=== PATIENT | female | born 1990 | race Caucasian/White ===

== ENCOUNTER 2017-07-03 23:10 | Inpatient (IN) | payer BC ==
[~2017-07-03] VITALS: Ht 154.9 cm; Wt 75.9 kg
[~2017-07-03 23:10] MED LIST: OMEP40CA PO
[2017-07-03] MEDS ORDERED: LACTATED RINGER'S 1000ML 1,000 ML IV PRN (23:44)
[2017-07-03] MEDS ORDERED: PENICILLIN G POTASSIUM IV 6 MU in DEXTROSE 5% 250ML 250 ML IV STA (23:48)
[2017-07-04 00:06] LABS: HEMATOCRIT 33.2 % (37-47); MEAN CELL VOLUME 87.6 fL (80-100); MEAN CORPUSCULAR HEMOGLOBIN 30.6 pg (25-34); MEAN CORPUSCULAR HGB CONC 34.9 g/dl (32-36); PLATELET COUNT 297 K/uL (130-400); RED BLOOD COUNT 3.79 M/uL (4.2-5.4)
[2017-07-04] MEDS: LACTATED RINGER'S 1000ML 1,000 ML IV SCH ×2 (00:12→14:13)
[2017-07-04 00:22] VITALS: Ht 154.9 cm; Wt 75.9 kg
[2017-07-04] MEDS ORDERED: PRENTAB26 PO (00:23)
[2017-07-04] MEDS: PENICILLIN G POTASSIUM IV 3 MU in DEXTROSE 5% 100ML 100 ML IV PRN ×4 (04:00→16:06)
[2017-07-04] MEDS ORDERED: LACTATED RINGER'S 1000ML 500 ML IV PRN ×2 (07:29→08:14)
[2017-07-04] MEDS ORDERED: OXYTOCIN 30 UNITS/500ML NSS IV PRN (07:30)
[2017-07-04] MEDS ORDERED: FENTANYL 2MCG/ML ROPIV 1.25MG/ML 100ML BAG EPI ONE (07:31)
[2017-07-04] MEDS ORDERED: EpHEDrine SULFATE INJ 50 MG/ML AMP ONE (07:31)
[2017-07-04] MEDS ORDERED: FENTANYL CITRATE INJ 50 MCG/1 ML 2 ML VIAL ONE (07:31)
[2017-07-04] MEDS ORDERED: BUPIVACAINE 0.25% 30 ML VIAL ONE (07:31)
[2017-07-04] MEDS ORDERED: NALOXONE HCL INJ 1 MG in SODIUM CHLORIDE 0.9% 1000ML 1,000 ML IV PRN (08:14)
[2017-07-04] MEDS ORDERED: NALBUPHINE HCL INJ 10 MG/ML AMP IV PRN (08:15)
[2017-07-04] MEDS ORDERED: DiphenhydrAMINE HCL 50 MG/ML VIAL IV PRN (08:15)
[2017-07-04] MEDS ORDERED: ONDANSETRON INJ 2 MG/ML 2 ML VIAL IV PRN (08:15)
[2017-07-04] MEDS ORDERED: NALOXONE HCL INJ 0.4 MG/1 ML VIAL/CARP IV PRN (08:15)
[2017-07-04] MEDS ORDERED: EpHEDrine SULFATE INJ 50 MG/ML AMP IV PRN (08:15)
[2017-07-04] MEDS ORDERED: FENTANYL 2MCG/ML ROPIV 1.25MG/ML 100ML BAG EPI PRN (08:15)
[2017-07-04] MEDS ORDERED: LACTATED RINGER'S 1000ML 1,000 ML IV SCH (17:48)
[2017-07-04] MEDS ORDERED: CITRIC ACID/SODIUM CITRATE 15 ML UDC ONE (17:50)
[2017-07-04] MEDS ORDERED: CITRIC ACID/SODIUM CITRATE 15 ML UDC PO ONE (18:00)
[2017-07-04] MEDS ORDERED: CEFAZOLIN IV 2,000 MG in DEXTROSE 5% 50ML 50 ML IV SCH (18:15)
[2017-07-04] MEDS ORDERED: ONDANSETRON INJ 2 MG/ML 2 ML VIAL ONE (18:42)
[2017-07-04] MEDS ORDERED: OXYTOCIN INJ 10 UNITS/ML VIAL ONE ×2 (18:42→19:41)
[2017-07-04] MEDS ORDERED: MoRPHine SULFATE PF 1 MG/ML 10 ML AMP/VIAL ONE (18:43)
[2017-07-04] MEDS ORDERED: SUCCINYLCHOLINE CHLORIDE 20 MG/ML 10 ML VIAL IV ONE (18:58)
[2017-07-04] MEDS ORDERED: PROPOFOL IV EMULSION 10 MG/ML 20 ML VIAL IV ONE (18:58)
[2017-07-04] MEDS ORDERED: KETOROLAC TROMETHAMINE 30 MG/ML VIAL ONE (19:00)
--- NOTE | 2017-07-04 19:25 | Anesthesia Procedure Note ---
Anesthesia Epidural Removal Nt Date & Time Jul 04, 2017 at 19:24 Vital Signs Pain Intensity: 0.0 Notes Mental Status: alert / awake / arousable, participated in evaluation Nausea / Vomiting: adequately controlled Pain: adequately controlled Airway Patency, RR, SpO2: stable & adequate BP & HR: stable & adequate Hydration State: stable & adequate Neuraxial Anesthesia: was administered Anesthetic Complications: no major complications apparent, pt satisfied with anesthetic care Epidural: removed without complications, with tip intact
[2017-07-04] MEDS ORDERED: MoRPHine SULFATE 2 MG/ML CARP IV PRN (19:30)
[2017-07-04] MEDS ORDERED: MoRPHine SULFATE PF 1 MG/ML 10 ML AMP/VIAL EPI PRN (19:30)
[2017-07-04] MEDS ORDERED: KETOROLAC TROMETHAMINE 30 MG/ML VIAL IV. PRN (19:30)
[2017-07-04] MEDS ORDERED: CONTINUE MEDICATION ONE (19:30)
[2017-07-04] MEDS ORDERED: NO NARCOTICS OR SEDATIVES SCH (19:30)
[2017-07-04] MEDS ORDERED: OXYTOCIN INJ 20 UNITS in D5W AND LACTATED RINGERS 1,000 ML IV SCH (19:36)
[2017-07-04] MEDS ORDERED: OXYTOCIN INJ 20 UNITS in LACTATED RINGER'S 1000ML 1,000 ML IV SCH (19:36)
[2017-07-04] MEDS ORDERED: SUPERCREAM 0.870 % 15GM JAR EXT PRN (19:45)
[2017-07-04] MEDS ORDERED: MEASLES, MUMPS & RUBELLA VIRUS VIAL SQ. ONE (19:45)
[2017-07-04] MEDS ORDERED: SENNA 8.6 MG TAB PO PRN (19:45)
[2017-07-04] MEDS ORDERED: MAGNESIUM HYDROXIDE SUSP 30 ML UDC PO PRN (19:45)
[2017-07-04] MEDS ORDERED: HYDROCORTISONE ACETATE 25 MG SUPP PR PRN (19:45)
[2017-07-04] MEDS ORDERED: BENZOCAINE 20% AER SPR 82.5 GM CAN EXT PRN (19:45)
[2017-07-04] MEDS ORDERED: LANOLIN OINT EXT PRN ×2 (19:45)
--- NOTE | 2017-07-04 19:45 | [facility] Post Operative Brief Note ---
Immediate Operative Summary Operative Date Jul 04, 2017. Pre-Operative Diagnosis Prlonged ROM, Non reassuring heart tones, Arrest of dilation, Occiptial posterior postion Post-Operative Diagnosis Same Procedure(s) Performed Primary Caesarean Section for the of a viable male child at 1831. Surgeon Vehicle Delivery Worker Surgeon(s) KEISHA Casas Estimated Blood Loss 800 ml Findings Viable male infant, Apgars 9/9 Fluids (cc crystalloids) 1500 ml LR Specimens 1.) Placenta Exam 2.) Cord Blood Drains Crockett 150 ml Anesthesia Epidural, Dr. EVANS Complication(s) None Disposition L&D
[2017-07-04] MEDS: DOCUSATE SODIUM 100 MG CAP PO SCH (20:00)
[2017-07-04] MEDS: SIMETHICONE 80 MG CHEW PO SCH (21:00)
[2017-07-04] MEDS ORDERED: HYDROmorphone INJ 1 MG/ML SYR IV ONE (21:45)
[2017-07-04] MEDS ORDERED: NURSING VERBAL MED ORDER ONE (21:45)
[2017-07-04 22:30] VITALS: BP 107/69; PULSE 67; TEMP 36.7; O2SAT 97
[2017-07-04 23:00] VITALS: O2SAT 95
--- NOTE | 2017-07-04 23:06 | OPERATIVE REPORT ---
DATE OF OPERATION: 07/04/2017 PREOPERATIVE DIAGNOSIS: The patient is a 26-year-old G1, P0, at 39 weeks and 4 days of gestation, presenting with premature rupture of membranes at term, prolonged rupture of membranes, arrest of dilatation at active stage of labor despite adequate uterine contractions, nonreassuring heart rate with recurrent prolonged decelerations, and persistent occiput posterior position. POSTOPERATIVE DIAGNOSIS: Same. PROCEDURE: Primary low-transverse with Pfannenstiel skin incision. SURGEON: Dr. Gilbert. MILLING SUPERVISOR: Yessenia Stockton RN. ESTIMATED BLOOD LOSS: 800 FLUIDS: 1500 mL of lactated Ringer. DRAINS: 150 mL of clear urine by Crockett catheter. ANESTHESIA: Epidural, Dr. Mojica. COMPLICATIONS: None. SPECIMENS: Placenta and cord blood. FINDINGS: Baby is a viable male delivered at 1831 in cephalic presentation with ROP, Apgars 9/9, weight is 3790 grams which is 8 pounds 5 ounces. Normal uterus, fallopian tubes and ovaries. DESCRIPTION OF PROCEDURE: The patient was taken to the operating room where epidural anesthesia was checked to be adequate. She was placed in dorsal supine position with a leftward tilt. The Vagina was washed with Betadine prior to preparation. She was prepared and draped in usual sterile fashion. A Pfannenstiel skin incision was made, carried through to the underlying layer of fascia with the Bovie. Fascia was incised in the midline and incision extended laterally with the help of Morgan scissors. Lower aspect of the fascial incision was then grasped with 2 Ayla clamps, elevated, underlying rectus muscles were dissected off sharply with Morgan scissors and upper aspect of the fascial incision was then grasped with 2 Ayla clamps, elevated, underlying rectus muscles were dissected off sharply with Morgan scissors. The rectus muscles were in the midline and peritoneum was identified, entered bluntly, and peritoneal incision was extended superiorly and inferiorly with good visualization of the bladder. Bladder blade was inserted. Vesicouterine peritoneum was identified, grasped with pickups, entered sharply with Metzenbaum scissors and the bladder flap was created digitally. Bladder blade was reinserted. Lower uterine segment was incised in transverse fashion. Incision was extended laterally with the help of fingers and then the baby's head was brought to the incision and delivered without difficulty. Shoulders were delivered with minimal traction, and baby was delivered. There was a body cord wrapped around abdomen which was reduced. The mouth and nose were suctioned. Cord was clamped x2 and cut, it was a 3-vessel cord. The baby was handed off to the awaiting assistant office manager. Cord blood was obtained and then placenta was delivered manually intact and complete. Uterus was exteriorized, cleared of all clots and debris. Uterine incision was repaired with 0 Vicryl in a running locked fashion. The uterus was soft, and boggy. IV Oxytocin was being given. Then 10 units of intramyometrial oxytocin was injected and then intramuscular Methergine was given by anesthesiologist and the uterus was massaged and found to be firm and contracted. Second umbricating layer was placed again with 0 Vicryl in a running locked fashion and excellent hemostasis was achieved. The uterus was returned to the abdomen and pelvis was irrigated with warm normal saline and suctioned. Incision was inspected again to be intact and hemostatic. Parietal peritoneum was reapproximated with 3-0 Vicryl in a running fashion. Rectus muscles were reapproximated with the same suture in a running fashion. Rectus fascia was reapproximated with 0 Vicryl in a running fashion. Subcuticular fat tissue was brought together with 3-0 Vicryl in a running fashion and the skin was closed with 4-0 Monocryl in a subcuticular fashion. The patient tolerated the procedure well. Sponge, lap, needle and instrument counts were correct x3. She was given 2 grams of cefazolin before surgery. She was taken to recovery room in stable condition. I attest to the content of the Intraoperative Record and any orders documented therein. Any exceptions are noted below. MTDD
[2017-07-04 23:15] VITALS: BP 116/72; PULSE 86; TEMP 36.9; O2SAT 95
[2017-07-05] VITALS (12 sets, daily range): BP systolic 102–109; BP diastolic 64–70; PULSE 73–99; TEMP 36.4–36.7; O2SAT 94–100
[2017-07-05] MEDS: METHYLERGONOVINE MALEATE 0.2 MG TAB PO SCH ×2 (03:31)
[2017-07-05] MEDS: LACTATED RINGER'S 1000ML 1,000 ML IV SCH (04:04)
[2017-07-05] MEDS ORDERED: ONDANSETRON INJ 2 MG/ML 2 ML VIAL IV PRN (06:00)
[2017-07-05] MEDS ORDERED: OXYCODONE/ACETAMINOPHEN 5-325 TAB PO PRN (06:00)
[2017-07-05] MEDS ORDERED: KETOROLAC TROMETHAMINE 30 MG/ML VIAL IV. PRN (06:00)
[2017-07-05] MEDS ORDERED: MEPERIDINE HCL 50 MG/ML CARP IV PRN ×2 (06:00)
[2017-07-05] MEDS ORDERED: PROMETHAZINE HCL INJ 25 MG in SODIUM CHLORIDE 0.9% 50ML 50 ML IV PRN (06:00)
[2017-07-05] MEDS ORDERED: DC INTRASPINAL MORPHINE ONE (06:00)
[2017-07-05] MEDS ORDERED: DiphenhydrAMINE HCL 50 MG/ML VIAL IV PRN (06:00)
[2017-07-05 06:34] LABS: HEMATOCRIT 26.3 % (37-47); MEAN CELL VOLUME 90.4 fL (80-100); MEAN CORPUSCULAR HEMOGLOBIN 30.2 pg (25-34); MEAN CORPUSCULAR HGB CONC 33.5 g/dl (32-36); MEAN PLATELET VOLUME 9.6 fL (7.4-10.4); PLATELET COUNT 225 K/uL (130-400); RED BLOOD COUNT 2.91 M/uL (4.2-5.4); WHITE BLOOD COUNT 19.19 K/uL (4.8-10.8)
[2017-07-05] MEDS: DOCUSATE SODIUM 100 MG CAP PO SCH ×2 (07:44→20:00)
[2017-07-05] MEDS: FERROUS SULFATE 325 MG TAB PO SCH (07:44)
[2017-07-05] MEDS: SIMETHICONE 80 MG CHEW PO SCH ×4 (07:45→20:44)
[2017-07-05] MEDS: PRENATAL VITAMIN TAB PO SCH (07:46)
[2017-07-05 07:51] LABS: BASO % 0.1 %; BASO ABS # 0.02 K/uL (0-0.2); COMPLETE YES; EOS % 0.4 %; IG% 0.4 %; LYMPH % 6.2 %; LYMPH ABS # 1.19 K/uL (1.2-3.4); MONO % 6.5 %; NEUT % 86.4 %
--- NOTE | 2017-07-05 09:00 | Surgery Progress Note ---
Surgery Progress Note Date of Service Jul 05, 2017. Subjective Post OP Day: 1 + feeling well, + ambulating, + flatus, + pain controlled, + diet (tolerating PO ), No complaints, No chest pain, No SOB, No bowel movement, No using SLAT BASKET MAKER HELPER, No nausea, No vomiting Objective Vital Signs: Date Time Temp Pulse Resp B/P (MAP) Pulse Ox O2 Delivery O2 Flow Rate FiO2 07/05/17 06:00 20 94 07/05/17 05:00 20 94 07/05/17 04:00 36.7 99 20 108/64 (79) 95 Room Air 07/05/17 04:00 20 95 07/05/17 03:00 20 94 07/05/17 02:00 20 97 07/05/17 01:00 18 94 07/05/17 00:01 18 94 07/04/17 23:15 36.9 86 18 116/72 (87) 95 Room Air 07/04/17 23:15 18 95 07/04/17 23:15 95 Room Air 07/04/17 23:00 18 95 07/04/17 22:30 36.7 67 18 107/69 (82) 97 Room Air General Appearance: WD/WN, no apparent distress Head: normocephalic, atraumatic Neck: supple, no adenopathy, thyroid normal, no JVD, no carotid bruits, trachea midline Respiratory/Chest: chest non-tender, lungs clear, normal breath sounds, no respiratory distress, no accessory muscle use Cardiovascular: regular rate, rhythm, no edema, no gallop, no JVD, no murmur Incision(s): clean, dry, intact, no erythema, no drainage Extremities: normal range of motion, non-tender, normal inspection, no pedal edema, no calf tenderness, normal capillary refill, pelvis stable Laboratory Results: Results Past 24 Hours Test 07/05/17 06:17 Range/Units White Blood Count 19.19 4.8-10.8 K/uL Red Blood Count 2.91 4.2-5.4 M/uL Hemoglobin 8.8 12.0-16.0 g/dL Hematocrit 26.3 37-47 % Mean Corpuscular Volume 90.4 80-100 fL Mean Corpuscular Hemoglobin 30.2 25-34 pg Mean Corpuscular Hemoglobin Concent 33.5 32-36 g/dl Platelet Count 225 130-400 K/uL Mean Platelet Volume 9.6 7.4-10.4 fL Neutrophils (%) (Auto) 86.4 % Lymphocytes (%) (Auto) 6.2 % Monocytes (%) (Auto) 6.5 % Eosinophils (%) (Auto) 0.4 % Basophils (%) (Auto) 0.1 % Neutrophils # (Auto) 16.58 1.4-6.5 K/uL Lymphocytes # (Auto) 1.19 1.2-3.4 K/uL Monocytes # (Auto) 1.25 0.11-0.59 K/uL Eosinophils # (Auto) 0.07 0-0.5 K/uL Basophils # (Auto) 0.02 0-0.2 K/uL RDW Standard Deviation 44.8 36.4-46.3 fL RDW Coefficient of Variation 13.6 11.5-14.5 % Immature Granulocyte % (Auto) 0.4 % Immature Granulocyte # (Auto) 0.08 0.00-0.02 K/uL Red Blood Cell Morphology Unremarkable Assessment & Plan C/judith day #1 pt doing well continue day #1 care
[2017-07-05] MEDS: IBUPROFEN 600 MG TAB PO PRN ×2 (18:00→23:21)
[2017-07-05] MEDS: OXYCODONE/ACETAMINOPHEN 5-325 TAB PO PRN ×2 (18:00→23:21)
[2017-07-05] MEDS ORDERED: BISACODYL 5 MG TABEC PO ONE (22:00)
[2017-07-06 06:38] LABS: HEMATOCRIT 23.7 % (37-47)
[2017-07-06] MEDS: IBUPROFEN 600 MG TAB PO PRN ×3 (06:39→18:33)
[2017-07-06] MEDS: OXYCODONE/ACETAMINOPHEN 5-325 TAB PO PRN ×3 (06:39→18:32)
[2017-07-06] MEDS: FERROUS SULFATE 325 MG TAB PO SCH (07:51)
[2017-07-06] MEDS: SIMETHICONE 80 MG CHEW PO SCH ×4 (07:51→20:36)
[2017-07-06] MEDS: PRENATAL VITAMIN TAB PO SCH (07:52)
[2017-07-06 08:00] VITALS: BP 116/66; PULSE 84; TEMP 36.7; O2SAT 99
[2017-07-06] MEDS: DOCUSATE SODIUM 100 MG CAP PO SCH ×2 (08:00→20:00)
--- NOTE | 2017-07-06 09:41 | Surgery Progress Note ---
Surgery Progress Note Date of Service Jul 06, 2017. Subjective Post OP Day: 2 + feeling well, + ambulating, + flatus, + pain controlled, + diet Objective Vital Signs: Date Time Temp Pulse Resp B/P (MAP) Pulse Ox O2 Delivery O2 Flow Rate FiO2 07/06/17 08:00 36.7 84 18 116/66 (83) 99 Room Air 07/06/17 08:00 99 Room Air 07/05/17 23:10 99 Room Air 07/05/17 23:10 36.5 73 18 109/64 (79) 99 Room Air 07/05/17 16:00 100 Room Air 07/05/17 15:08 36.4 80 16 107/65 (79) 99 Room Air 07/05/17 12:30 36.7 94 18 102/64 (77) 98 Room Air General Appearance: no apparent distress Abdomen: non tender, non distended, soft Incision(s): clean, dry, intact Extremities: non-tender, normal inspection, no pedal edema Laboratory Results: Results Past 24 Hours Test 07/06/17 06:31 Range/Units Hemoglobin 8.2 12.0-16.0 g/dL Hematocrit 23.7 37-47 % Assessment & Plan POD#2 tent d/c in AM regular diet
[2017-07-06 17:20] VITALS: BP 109/64; PULSE 90; TEMP 36.6
[2017-07-06] MEDS ORDERED: BISACODYL 10 MG SUPP PR PRN (19:45)
[2017-07-07 00:35] VITALS: BP 96/52; PULSE 86; TEMP 36.6
[2017-07-07] MEDS: IBUPROFEN 600 MG TAB PO PRN ×2 (04:56→12:24)
[2017-07-07] MEDS: OXYCODONE/ACETAMINOPHEN 5-325 TAB PO PRN ×2 (04:58→12:23)
[2017-07-07] MEDS ORDERED: FERROUS SULFATE 325 MG TAB PO SCH (08:00)
[2017-07-07] MEDS: DOCUSATE SODIUM 100 MG CAP PO SCH (08:00)
[2017-07-07 08:15] VITALS: O2SAT 100
[2017-07-07] MEDS: SIMETHICONE 80 MG CHEW PO SCH ×2 (08:24→12:23)
[2017-07-07] MEDS: PRENATAL VITAMIN TAB PO SCH (08:24)
--- NOTE | 2017-07-07 08:26 | OB/GYN Progress Note ---
WARRANT SERVER Progress Note Date of Service: Jul 07, 2017. Patient is seen and examined. She feels well, no complaints. Pain is under control with oral meds. Ambulating without dizziness Voiding without difficulty Tolerating regular diet with out N&V Flatus + BM + Bleeding is minimal No fever/ chills/ CP/ SOB/ N&V/ Leg pain Breast feeding without problems Date Time Temp Pulse Resp B/P (MAP) Pulse Ox O2 Delivery O2 Flow Rate FiO2 07/07/17 00:35 36.6 86 16 96/52 (67) Room Air 07/07/17 00:35 Room Air 07/06/17 17:20 Room Air 07/06/17 17:20 36.6 90 18 109/64 (79) Room Air Test 07/03/17 23:53 07/05/17 06:17 07/06/17 06:31 07/07/17 08:21 White Blood Count 11.60 H 19.19 H Pending Red Blood Count 3.79 L 2.91 L Pending Mean Corpuscular Volume 87.6 90.4 Pending Mean Corpuscular Hemoglobin 30.6 30.2 Pending Mean Corpuscular Hemoglobin Concent 34.9 33.5 Pending RDW Standard Deviation 42.9 44.8 RDW Coefficient of Variation 13.4 13.6 Platelet Count 297 225 Pending Mean Platelet Volume 10.0 9.6 Hemoglobin 8.8 L 8.2 L Pending Hematocrit 26.3 L 23.7 L Pending Neutrophils (%) (Auto) 86.4 Lymphocytes (%) (Auto) 6.2 Monocytes (%) (Auto) 6.5 Eosinophils (%) (Auto) 0.4 Basophils (%) (Auto) 0.1 Neutrophils # (Auto) 16.58 H Lymphocytes # (Auto) 1.19 L Monocytes # (Auto) 1.25 H Eosinophils # (Auto) 0.07 Basophils # (Auto) 0.02 Immature Granulocyte % (Auto) 0.4 Immature Granulocyte # (Auto) 0.08 H Red Blood Cell Morphology Unremarkable PE: General: Alert, orientedx3, NAD CVS: S1S2 RRR Lungs; CTAB Abd: soft, NT, fundus firm, below Umbilicus Incision: Clean, dry, intact Perineum intact, Lochia rubra minimal Ext; NT, no edema AP: 26 yo s/p C Section, pod# 3 VSS Afebrile doing well Anemic asymptomatic, todays cbc pending On iron Continue routine postop care Encourage ambulation, PO intake Instructions were given when to call All questions were answered D/C home , f/u in office
[2017-07-07] MEDS ORDERED: OXYC-57 PO (08:27)
[2017-07-07] MEDS ORDERED: FRRS300 PO (08:27)
[2017-07-07] MEDS ORDERED: MTR600X PO (08:27)
--- NOTE | 2017-07-07 08:28 | Discharge Instructions ---
Discharge Instructions Date of Service Jul 07, 2017. Admission Reason for Admission: LABOR Discharge Discharge Diagnosis / Problem: Discharge Goals Goal(s): Routine recovery after delivery, Routine recovery after Medications Continue Dispensed Medications: lansinoh Activity Recommendations Activity Limitations: as noted below Lifting Limitations: no more than 10 pounds Exercise/Sports Limitations: until after follow-up appointment May Resume Sexual Activity: after follow-up appointment Shower/Bathe: keep incision dry Driving or Machine Use: ACTIVITY RECOMMENDATIONS: * Gradual return to full activity over the next 2-3 weeks. * No lifting - nothing heavier than baby over the next 2-3 weeks. * Do not engage in vigorous exercise, sexual activity or sports until cleared by your physician. * Do not drive or operate any motorized equipment until cleared by your physician. * You may shower/bathe daily. BREAST CARE: If you are not breast feeding: * Wear a supportive bra 24 hours a day for one to two weeks. * Avoid stimulating your breasts and nipples as much as possible during the first few weeks after delivery. * When taking a shower, have the warm water hit your back, not breasts. * When your breasts feel full, apply ice packs. Usually three to four times a day helps ease the discomfort. * Take a mild pain medication (Tylenol/Motrin) when you are uncomfortable. If breast feeding: * Use breast milk to lubricate nipples. Lansinoh cream may be used for sore nipples. You do not need to remove cream prior to breast feeding. If using a different brand of cream, check the label for directions regarding removal of cream prior to nursing. * Wear a supportive bra. * If having problems with breasts or breast feeding, call a admissions consultant or your health care provider. OVER THE COUNTER MEDICATION: * For discomfort or pain, you may use Acetaminophen (Tylenol), Ibuprofen (Advil ), or Naproxen (Aleve) following the package directions. * For constipation you may use Colace following the package directions. SPECIAL CARE INSTRUCTIONS: When you are discharged from the hospital, it is important for you to follow the instructions listed below: * During the first week at home, you should be able to care for yourself and your baby. In addition, the usual light household activities are encouraged. * Limit your activities to the way you feel. Do not try to clean the house or move furniture. Be sensible. * If you actively engage in sports and have done so up until the time of your delivery, you may resume these activities as soon as you feel able. This may take up to one month or even longer. Use good judgment. * Continue to take your vitamins for at least six weeks after the of your baby. * Your diet need not be limited unless you were on a special diet before your delivery. Breast-feeding mothers need around 2500 calories per day and at least 64-80 ounces of fluid per day (8 to 10 glasses). * You should eat foods from the four major food groups. Crash diets or fad diets are to be avoided. Eating lean meats, fresh fruits and vegetables, low-fat dairy products, high fiber foods and a regular exercise program, will help you get back to your pre- weight without putting your health at risk. * Constipation is sometimes a problem after delivery. Take a mild laxative as needed. If breast feeding, Milk of Magnesia is acceptable to use. You may use a suppository or Fleets enema if no episiotomy. * A daily shower or tub bath is suggested. Be sure to thoroughly and gently dry the perineum. * A bloody vaginal discharge will usually continue until around four weeks post . A small amount of bleeding may continue for as long as six weeks. Vaginal discharge changes from the bright red bleeding after delivery to pink then brownish and finally yellowish-pink before becoming white and disappearing. * Bleeding may increase with activity. Your first period may come in 4-8 weeks. If you are breast feeding, your period may be delayed even longer. * [place] (sex) can begin whenever both you and your partner feel comfortable and do not have any form of genital infection. It is recommended that you wait at least six weeks for internal and external healing to occur. If you have questions, please talk to your health care practitioner. A condom should be used to prevent infection and . * Foreplay, gentle intercourse and lubrication is very important the first several times to prevent pain. A water-based lubricant such as K-Y jelly or Astroglide may be used. * Tampons and/or Douching should be avoided until after six weeks check-up. * If you have RH negative blood and your baby is RH positive, you will receive RHOGAM by injection prior to discharge. The nurse will give you a card to keep with you that has the date and place that you received RHOGAM after delivery. * During your care, you had a Rubella screen done to check for the presence of rubella antibodies in your blood. If your test was negative, you will receive a Rubella vaccine prior to discharge. This vaccine may cause a fever, soreness at the injection site and flu-like symptoms. If these symptoms persist, notify your health care practitioner. is not advised for three months after a Rubella vaccine. * Verbalizes understanding of car seat law as reviewed with patient nursing. * Car Seat hand-out given and reviewed with patient by nursing. * Shaken baby information reviewed with patient by nursing. Call you doctor if: * Heavy bleeding (saturating several pads an hour) or passing clots the size of your fist. * A fever >101 degrees F (38.3 degrees C) on two occasions four hours apart and /or chills. * Unusual pain in the pelvic or vaginal areas. Pain should improve each day . * Call the doctor for any increased redness, drainage or swelling around the incision and any pain unrelieved by prescribed pain medication. * Any signs or symptoms of phlebitis (possible blood clots forming in the veins ): leg pain, warm, red or swollen area on leg. * "Baby Blues" lasting longer than two weeks. If you have any questions or concerns, call your health care practitioner at . FOLLOW-UP VISIT: * Incision check (staple removal) in 1 week. Please call doctor's office at to set up appointment. * Please call the office at to schedule a 6 week examination. It is important you keep this appointment. * It is important for you to make arrangements for either yearly or twice yearly check-ups thereafter. . Current Hospital Diet Patient's current hospital diet: Regular OB Diet Discharge Diet Recommended Diet: Regular Diet Procedures Procedures Performed: Primary Caesarean Section for the of a viable male child at 1831. Pending Studies Studies pending at discharge: no Medical Emergencies . Who to Call and When: Medical Emergencies: If at any time you feel your situation is an emergency, please call 911 immediately. . Non-Emergent Contact Non-Emergency issues call your: Surgeon Call Non-Emergent contact if: temperature is above 100.5, your pain is not controlled, your pain is worsening, wound has increased drainage, wound has increased redness, wound has increased pain . . "Provider Documentation" section prepared by Jens Gilbert. . VTE Core Measure Inpt VTE Proph given/why not?: Treatment not indicated
[2017-07-07 08:39] LABS: BASO % 0.2 %; BASO ABS # 0.02 K/uL (0-0.2); EOS % 4.1 %; HEMATOCRIT 23.3 % (37-47); IG% 0.8 %; LYMPH % 13.4 %; LYMPH ABS # 1.43 K/uL (1.2-3.4); MEAN CELL VOLUME 89.3 fL (80-100); MEAN CORPUSCULAR HEMOGLOBIN 30.3 pg (25-34); MEAN CORPUSCULAR HGB CONC 33.9 g/dl (32-36); MEAN PLATELET VOLUME 9.4 fL (7.4-10.4); MONO % 5.9 %; NEUT % 75.6 %; PLATELET COUNT 264 K/uL (130-400); RED BLOOD COUNT 2.61 M/uL (4.2-5.4); WHITE BLOOD COUNT 10.69 K/uL (4.8-10.8)
[2017-07-07 08:55] VITALS: BP 109/69; PULSE 85; TEMP 36.8; O2SAT 100
[2017-07-07 09:11] LABS: COMPLETE YES; HYPOCHROMIA PRESENT; TOXIC GRANULATION 1+
--- NOTE | 2017-07-07 10:07 | OB/GYN Progress Note ---
NUCLEAR OPERATOR Progress Note Date of Service: Jul 07, 2017. Repeat CBC: Last 24 Hours Test 07/07/17 08:21 White Blood Count 10.69 K/uL Red Blood Count 2.61 M/uL Hemoglobin 7.9 g/dL Hematocrit 23.3 % Mean Corpuscular Volume 89.3 fL Mean Corpuscular Hemoglobin 30.3 pg Mean Corpuscular Hemoglobin Concent 33.9 g/dl Platelet Count 264 K/uL Mean Platelet Volume 9.4 fL Neutrophils (%) (Auto) 75.6 % Lymphocytes (%) (Auto) 13.4 % Monocytes (%) (Auto) 5.9 % Eosinophils (%) (Auto) 4.1 % Basophils (%) (Auto) 0.2 % Neutrophils # (Auto) 8.08 K/uL Lymphocytes # (Auto) 1.43 K/uL Monocytes # (Auto) 0.63 K/uL Eosinophils # (Auto) 0.44 K/uL Basophils # (Auto) 0.02 K/uL RDW Standard Deviation 44.5 fL RDW Coefficient of Variation 13.5 % Immature Granulocyte % (Auto) 0.8 % Immature Granulocyte # (Auto) 0.09 K/uL Toxic Granulation 1+ Hypochromasia PRESENT Discussed blood transfusion and its possible risks Discussed anemia, treatment with iron, 2 times a day on empty stomach with vitamin C She is asymptomatic and likes to go home with iron Rx All questions were answered
[2017-07-07 11:30] VITALS: BP_DIAS 69; PULSE 85; TEMP 36.8
--- NOTE | 2017-07-25 15:09 | DISCHARGE SUMMARY ---
DETAILS OF ADMISSION: The patient is a 26-year-old G1, P0 at 39 weeks and 4 days of gestation who presented with premature rupture of membranes at term on July 03. Her labor was augmented with Pitocin in the morning of 07/04 and she went into active labor. Found to have arrest of dilatation in active stage of labor and a category 2 strip and persistent occiput posterior position. Recommended to proceed with primary . See QS notes and dictated op note for details. The patient delivered a viable male on July 04 at 1831 p.m. Apgars 9/9. See dictated op note for details. On postop period, the patient was doing well. Vital signs stable, afebrile. Urine output was good. On postop day #1, the patient was doing well. Vital signs stable, afebrile. Crockett was discontinued. She was ambulating, voiding, tolerating a regular diet and passing gas. Her H&H was 8.8/26.3 on postop day #1. Physical exam was unremarkable. Abdomen soft, nontender. Firm fundus firm. Incision clean, dry and intact. The patient was continuously monitored. On postop day #2, the patient was doing well, ambulating, tolerating regular diet, passing gas, vital signs stable, afebrile. Her H&H was 8.2/23.7. She had no symptoms. On postop day #3 on July 07, the patient was doing well. She had no complaints, ambulating without dizziness, using the bathroom. She moved her bowels, without problems. Vital signs stable, afebrile. Her repeat H&H came back as 7.9/23.3. Discussed with the patient about the results, either a blood transfusion versus treatment of anemia with oral iron and vitamin C therapy. She was asymptomatic. She did not want a blood transfusion. She decided to go home with iron and vitamin C and instructions were given when to call, prescriptions were written and all questions were answered. She was discharged on 07/07/2017. JESUS
== END 2017-07-07 12:32 | disposition home or self-care (01) | DRG 766 ==
LOC: C.OPB 23:10 → C.LD 23:10 → C.OPB 23:46 → C.OBG 07-04 22:27
PROVIDERS: ADMIT Obstetrics & Gynecology; ATTEND Obstetrics & Gynecology
PROC: 10D00Z1 Extraction of Products of Conception, Low, Open Approach (ICD-10-PCS; principal; 2017-07-04 18:01)
DX: O76 Abnormality in fetal heart rate and rhythm complicating labor and delivery (principal); O62.1 Secondary uterine inertia; O64.0XX0 Obstructed labor due to incomplete rotation of fetal head, not applicable or unspecified; O90.81 Anemia of the puerperium; Z37.0 Single live birth; Z3A.38 38 weeks gestation of pregnancy

== ENCOUNTER 2021-02-24 13:58 | Observation (INO) ==
[2021-02-24] MEDS: LACTATED RINGER'S 1,000 ML IV PRN ×2 (14:38→17:36)
[2021-02-24] MEDS ORDERED: OXYTOCIN 30 UNITS/500 ML BAG IV PRN (14:40)
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
[2021-02-24] MEDS ORDERED: BETAMETH SOD PHOS/ACETATE IA 6 MG/ML IM STA (14:53)
[2021-02-24] MEDS ORDERED: TERBUTALINE SULFATE 1 MG/ML VIAL ONE (14:58)
[2021-02-24 14:59] LABS: Hematocrit (blood only) 32.3 % (37-47); Hemoglobin 11.5 g/dL (12.0-16.0); Mean Corpuscular Hemoglobin 32.9 pg (25-34); Mean Corpuscular Volume 92.3 fL (80-100); Platelet Count 292 K/uL (130-400); RDW Coefficient of Variation 13.1 % (11.5-14.5); RDW Standard Deviation 44.1 fL (36.4-46.3); White Blood Count 19.34 K/uL (4.8-10.8)
[2021-02-24] MEDS ORDERED: TERBUTALINE SULFATE 1 MG/ML VIAL SQ ONE (15:03)
[2021-02-24 15:09] LABS: Mean Corpuscular Hgb Conc 35.6 g/dL (32-36)
[2021-02-24 15:17] LABS: Albumin Level 2.6 gm/dl (3.4-5.0); BUN Creatinine Ratio 8.1 (10-20); Calcium 8.5 mg/dl (8.5-10.1); Est GFR (African American) 136.7; Potassium 4.3 mmol/L (3.5-5.1)
[2021-02-24 15:20] LABS: Albumin Globulin Ratio 0.7 (0.9-2); Bilirubin,Total 0.3 mg/dl (0.2-1); Globulin 3.9 gm/dl (2.5-4.0); Total Protein 6.5 gm/dl (6.4-8.2)
[2021-02-24 15:52] LABS: Appearance Urine Cloudy (Clear); Bacteria Urine Automated Negative (Negative); Bilirubin Urine Negative (Negative); Blood Urine Negative (Negative); Color Urine Dark Yellow; Epithelial Cell Urine Auto >30 /lpf (0-5); Glucose Urine UA Negative (Negative); Ketones Urine Negative (Negative); Leukocyte Esterase Urine Negative (Negative); Nitrite Urine Negative (Negative); Protein Urine 2+ (Negative); Specific Gravity Urine 1.019 (1.000-1.030); Urobilinogen Urine Negative (Negative); pH Urine 6.5 (4.5-7.5)
--- NOTE | 2021-02-24 16:07 | Labor Progress Brief Note ---
Date of Service February 24, 2021 Subjective Reason For Note: Requested By RN pt ctx have returned and worsening. called by nurse and came to see pt. pt feels ctx regularly and all equally painful. no rom. Assessment & Plan (1) Dichorionic diamniotic twin , antepartum: (2) labor: (3) contractions: given ega and twins suspicious for ptl but exam unchanged so no evidence yet, will cont to monitor, ivf, betameth x 1 given. fhts now categ 1 baby a and b. pt aware of current status, will plan recheck cx in 1-2 hr. if cx changes, will plan magnesium. if not, continue close followup. Admission and Anticipated Discharge Date Admission Date: February 24, 2021 Physical Exam Constitutional: WD/WN, vitals as above Genitourinary: Manual OB Exam: + cervical dilation (1-2), + cervical effacement (75%) and + station (ballotable) OB Exam Monitor Tracing: + external FHT monitor used (a- 160 mod variability, b 155 mod variability. ), + external uterine monitor used (q2), + category I and + normal FHT variability moderate to palpation per nurse Results & Data ([facility]) Vital Signs (Past 12 Hours) Vital Signs Temp Pulse Resp BP Pulse Ox 02/24/21 15:59 104 H 100 02/24/21 15:54 108 H 100 02/24/21 15:49 105 H 100 02/24/21 15:48 110 H 122/77 02/24/21 15:44 111 H 100 02/24/21 15:39 105 H 100 02/24/21 15:34 121 H 111/71 100 02/24/21 15:29 116 H 100 02/24/21 15:24 121 H 100 02/24/21 15:19 113 H 114/66 100 02/24/21 15:14 129 H 100 02/24/21 15:09 126 H 100 02/24/21 15:04 144 H 100 02/24/21 15:03 126 H 110/70 02/24/21 14:59 124 H 100 02/24/21 14:54 119 H 100 02/24/21 14:49 123 H 100 02/24/21 14:44 106 H 100 02/24/21 14:40 139 H 112/55 L 02/24/21 14:39 110 H 99 02/24/21 14:37 92 H 86 L 02/24/21 14:34 118 H 97 02/24/21 14:17 98.6 F 20 02/24/21 14:13 123 H 109/60 Coding Level of Care Code None Diagnoses Dichorionic diamniotic twin , antepartum O30.049 labor O60.00 contractions O47.9
--- NOTE | 2021-02-24 17:00 | Labor Progress Brief Note ---
Date of Service February 24, 2021 Subjective Reason For Note: Other pt partner arrived so went in room to discuss course thus far. pt still with painful ctx and is really uncomfortable in her current position. no rom. Assessment & Plan (1) contractions: (2) Dichorionic diamniotic twin , antepartum: still no dx of PTL. twins now reassuring on monitor, categ 1. plan recheck cx in next 1hr. explained circumstances since pt arrival to now with her partner. they deny further questions. labs reviewed. covid neg. Admission and Anticipated Discharge Date Admission Date: February 24, 2021 Physical Exam Constitutional: WD/WN, vitals as above Genitourinary: OB Exam Monitor Tracing: + external FHT monitor used (a and b, categ 1. needed u/s to relocate b after position change. ), + external uterine monitor used (q2-3) and + normal FHT variability Results & Data ([facility]) Vital Signs (Past 12 Hours) Vital Signs Temp Pulse Resp BP Pulse Ox 02/24/21 16:54 122 H 100 02/24/21 16:49 119 H 105/58 L 100 02/24/21 16:44 119 H 100 02/24/21 16:39 121 H 100 02/24/21 16:34 110 H 100/57 L 100 02/24/21 16:29 107 H 100 02/24/21 16:24 96 H 100 02/24/21 16:19 109 H 114/73 100 02/24/21 16:14 108 H 100 02/24/21 16:09 114 H 100 02/24/21 16:04 117 H 100 02/24/21 16:00 20 02/24/21 15:59 104 H 100 02/24/21 15:54 108 H 100 02/24/21 15:49 105 H 100 02/24/21 15:48 110 H 122/77 02/24/21 15:44 111 H 100 02/24/21 15:39 105 H 100 02/24/21 15:34 121 H 111/71 100 02/24/21 15:29 116 H 100 02/24/21 15:24 121 H 100 02/24/21 15:19 113 H 114/66 100 02/24/21 15:14 129 H 100 02/24/21 15:09 126 H 100 02/24/21 15:04 144 H 100 02/24/21 15:03 126 H 110/70 02/24/21 14:59 124 H 100 02/24/21 14:54 119 H 100 02/24/21 14:49 123 H 100 02/24/21 14:44 106 H 100 02/24/21 14:40 139 H 112/55 L 02/24/21 14:39 110 H 99 02/24/21 14:37 92 H 86 L 02/24/21 14:34 118 H 97 02/24/21 14:17 98.6 F 20 02/24/21 14:13 123 H 109/60 Coding Level of Care Code None Diagnoses contractions O47.9 Dichorionic diamniotic twin , antepartum O30.049
[2021-02-24] MEDS ORDERED: PROMETHAZINE HCL 25 MG in SODIUM CHLORIDE 0.9% 50 ML IV PRN (17:49)
--- NOTE | 2021-02-24 17:52 | Labor Progress Brief Note ---
Date of Service February 24, 2021 Subjective Reason For Note: Routine Evaluation pt feels somewhat better on right side. but now feel some ctx returning. no rom. Assessment & Plan (1) contractions: (2) Dichorionic diamniotic twin , antepartum: discussed no dx of pretermlabor as of yet. can offer further monitoring and recheck in 2hr, vs. morphine rest and see if that gives relief and knocks out ctx that are not significant. discussed se, risk, benefit. pt desires morphine rest. Admission and Anticipated Discharge Date Admission Date: February 24, 2021 Physical Exam Genitourinary: Manual OB Exam: + cervical dilation (no change. ) OB Exam Monitor Tracing: + external FHT monitor used (a and b with good variability), + external uterine monitor used (q2-4), + category I and + normal FHT variability Results & Data ([facility]) Vital Signs (Past 12 Hours) Vital Signs Temp Pulse Resp BP Pulse Ox 02/24/21 17:48 122 H 107/55 L 02/24/21 17:44 119 H 97 02/24/21 17:39 122 H 97 02/24/21 17:34 113 H 100 02/24/21 17:30 18 02/24/21 17:29 121 H 100 02/24/21 17:24 114 H 100 02/24/21 17:19 115 H 100 02/24/21 17:18 115 H 108/57 L 02/24/21 17:14 123 H 100 02/24/21 17:09 123 H 100 02/24/21 17:04 123 H 117/57 L 100 02/24/21 17:00 18 02/24/21 16:59 124 H 100 02/24/21 16:54 122 H 100 02/24/21 16:49 119 H 105/58 L 100 02/24/21 16:44 119 H 100 02/24/21 16:39 121 H 100 02/24/21 16:34 110 H 100/57 L 100 02/24/21 16:29 107 H 100 02/24/21 16:24 96 H 100 02/24/21 16:19 109 H 114/73 100 02/24/21 16:14 108 H 100 02/24/21 16:09 114 H 100 02/24/21 16:04 117 H 100 02/24/21 16:00 20 04/15/21 15:59 104 H 100 02/24/21 15:54 108 H 100 02/24/21 15:49 105 H 100 02/24/21 15:48 110 H 122/77 02/24/21 15:44 111 H 100 02/24/21 15:39 105 H 100 02/24/21 15:34 121 H 111/71 100 02/24/21 15:29 116 H 100 02/24/21 15:24 121 H 100 02/24/21 15:19 113 H 114/66 100 02/24/21 15:14 129 H 100 02/24/21 15:09 126 H 100 02/24/21 15:04 144 H 100 02/24/21 15:03 126 H 110/70 02/24/21 14:59 124 H 100 02/24/21 14:54 119 H 100 02/24/21 14:49 123 H 100 02/24/21 14:44 106 H 100 02/24/21 14:40 139 H 112/55 L 02/24/21 14:39 110 H 99 02/24/21 14:37 92 H 86 L 02/24/21 14:34 118 H 97 02/24/21 14:17 98.6 F 20 02/24/21 14:13 123 H 109/60 Coding Level of Care Code None Diagnoses contractions O47.9 Dichorionic diamniotic twin , antepartum O30.049
[2021-02-24] MEDS ORDERED: PROMETHAZINE HCL INJ 25 MG/ML 1 ML VIAL IM STA (18:00)
[2021-02-24] MEDS ORDERED: MoRPHine SULFATE 10 MG/ML CARP/VIAL IM STA (18:00)
--- NOTE | 2021-02-24 19:56 | Labor Progress Brief Note ---
Date of Service February 24, 2021 Subjective Reason For Note: Routine Evaluation and Other (strip review) came to unit to see patient, now about 2hr from last cx check. pt is sleeping. not c/o ctx. Assessment & Plan (1) Dichorionic diamniotic twin , antepartum: (2) contractions: pt resting s/p morphine. will allow to rest, no indication to recheck cx at this time. fhts categ 1. Admission and Anticipated Discharge Date Admission Date: February 24, 2021 Physical Exam Genitourinary: OB Exam Monitor Tracing: + external FHT monitor used (baby a and b categ 1. ), + external uterine monitor used (?irritability) and + normal FHT variability Results & Data ([facility]) Vital Signs (Past 12 Hours) Vital Signs Temp Pulse Resp BP Pulse Ox 02/24/21 19:49 100 H 96 02/24/21 19:48 97 H 106/60 02/24/21 19:44 114 H 95 02/24/21 19:39 104 H 96 02/24/21 19:34 100 H 96 02/24/21 19:33 100 H 105/60 02/24/21 19:29 98 H 96 02/24/21 19:24 99 H 95 02/24/21 19:19 100 H 97 02/24/21 19:18 101 H 103/61 02/24/21 19:14 104 H 96 02/24/21 19:09 107 H 97 02/24/21 19:04 98 H 96 02/24/21 19:03 93 H 104/63 02/24/21 18:59 100 H 96 02/24/21 18:54 98 H 96 02/24/21 18:49 101 H 96 02/24/21 18:48 93 H 103/62 02/24/21 18:44 110 H 95 02/24/21 18:39 127 H 96 02/24/21 18:34 110 H 106/57 L 96 02/24/21 18:29 112 H 98 02/24/21 18:24 122 H 97 02/24/21 18:19 125 H 111/58 L 98 02/24/21 18:14 119 H 97 02/24/21 18:09 123 H 98 02/24/21 18:07 117 H 93 02/24/21 18:04 113 H 96 02/24/21 18:03 107 H 102/55 L 02/24/21 17:59 112 H 97 02/24/21 17:54 113 H 96 02/24/21 17:49 112 H 98 02/24/21 17:48 122 H 107/55 L 02/24/21 17:44 119 H 97 02/24/21 17:39 122 H 97 02/24/21 17:34 113 H 100 02/24/21 17:30 18 02/24/21 17:29 121 H 100 02/24/21 17:24 114 H 100 02/24/21 17:19 115 H 100 02/24/21 17:18 115 H 108/57 L 02/24/21 17:14 123 H 100 02/24/21 17:09 123 H 100 02/24/21 17:04 123 H 117/57 L 100 02/24/21 17:00 18 02/24/21 16:59 124 H 100 02/24/21 16:54 122 H 100 02/24/21 16:49 119 H 105/58 L 100 02/24/21 16:44 119 H 100 02/24/21 16:39 121 H 100 02/24/21 16:34 110 H 100/57 L 100 02/24/21 16:29 107 H 100 02/24/21 16:24 96 H 100 02/24/21 16:19 109 H 114/73 100 02/24/21 16:14 108 H 100 02/24/21 16:09 114 H 100 02/24/21 16:04 117 H 100 02/24/21 16:00 20 02/24/21 15:59 104 H 100 02/24/21 15:54 108 H 100 02/24/21 15:49 105 H 100 02/24/21 15:48 110 H 122/77 02/24/21 15:44 111 H 100 02/24/21 15:39 105 H 100 02/24/21 15:34 121 H 111/71 100 02/24/21 15:29 116 H 100 02/24/21 15:24 121 H 100 02/24/21 15:19 113 H 114/66 100 02/24/21 15:14 129 H 100 02/24/21 15:09 126 H 100 02/24/21 15:04 144 H 100 02/24/21 15:03 126 H 110/70 02/24/21 14:59 124 H 100 02/24/21 14:54 119 H 100 02/24/21 14:49 123 H 100 02/24/21 14:44 106 H 100 02/24/21 14:40 139 H 112/55 L 02/24/21 14:39 110 H 99 02/24/21 14:37 92 H 86 L 02/24/21 14:34 118 H 97 02/24/21 14:17 98.6 F 20 02/24/21 14:13 123 H 109/60 Coding Level of Care Code None Diagnoses Dichorionic diamniotic twin , antepartum O30.049 contractions O47.9
[2021-02-24] MEDS ORDERED: MAGNESIUM SULFATE 40GM / WTR 1,000 ML BAG IV ONE (21:07)
[2021-02-24] MEDS ORDERED: MAG SULFATE 4GM BOLUS FROM BAG IV ONE (21:07)
--- NOTE | 2021-02-24 21:12 | Labor Progress Brief Note ---
Date of Service February 24, 2021 Subjective Reason For Note: Routine Evaluation pt woke up and now c/o regular ctx, painful. no rom. Assessment & Plan (1) Dichorionic diamniotic twin , antepartum: (2) 33 weeks gestation of : (3) labor: now evidence labor with cx change. rec transfer to tertiary care facility, she prefers [facility]. will work toward transfer. start magnesium. will begin pcn. spoke to Dr. Yassine Mendenhall and she accepts pt on transfer. Patient and partner advised. Ambulance transfer being arranged. Pt feeling flush from magnesium. CT/GC and gbs pending. urine cx pending. She did have one dose of betamethasone this afternoon. Admission and Anticipated Discharge Date Admission Date: February 24, 2021 Physical Exam Constitutional: WD/WN, vitals as above Genitourinary: Manual OB Exam: + cervical dilation 2 cm, + cervical effacement 80% and + station (-3) OB Exam Monitor Tracing: + external FHT monitor used (a and b categ 1), + external uterine monitor used (q2), + category I and + normal FHT variability Results & Data ([facility]) Vital Signs (Past 12 Hours) Vital Signs Temp Pulse Resp BP Pulse Ox 02/24/21 21:04 120 H 100 02/24/21 21:03 98 H 95/53 L 02/24/21 20:59 97 H 96 02/24/21 20:54 106 H 99 02/24/21 20:49 91 H 97 02/24/21 20:48 97 H 109/60 02/24/21 20:44 97.9 F 95 H 18 97 02/24/21 20:39 86 96 02/24/21 20:34 100 H 98 02/24/21 20:33 110 H 112/58 L 02/24/21 20:29 109 H 97 02/24/21 20:24 93 H 96 02/24/21 20:19 98 H 99 02/24/21 20:18 86 105/57 L 02/24/21 20:14 95 H 96 02/24/21 20:09 91 H 97 02/24/21 20:04 104 H 96 02/24/21 20:03 101 H 107/61 02/24/21 19:59 103 H 96 02/24/21 19:57 109 H 93 02/24/21 19:54 102 H 96 02/24/21 19:49 100 H 96 02/24/21 19:48 97 H 106/60 02/24/21 19:44 114 H 95 02/24/21 19:39 104 H 96 02/24/21 19:34 100 H 96 02/24/21 19:33 100 H 105/60 02/24/21 19:29 98 H 96 02/24/21 19:24 99 H 95 02/24/21 19:19 100 H 97 02/24/21 19:18 101 H 103/61 02/24/21 19:14 104 H 96 02/24/21 19:09 107 H 97 02/24/21 19:04 98 H 96 02/24/21 19:03 93 H 104/63 02/24/21 18:59 100 H 96 02/24/21 18:54 98 H 96 02/24/21 18:49 101 H 96 02/24/21 18:48 93 H 103/62 02/24/21 18:44 110 H 95 02/24/21 18:39 127 H 96 02/24/21 18:34 110 H 106/57 L 96 02/24/21 18:29 112 H 98 02/24/21 18:24 122 H 97 02/24/21 18:19 125 H 111/58 L 98 02/24/21 18:14 119 H 97 02/24/21 18:09 123 H 98 02/24/21 18:07 117 H 93 02/24/21 18:04 113 H 96 02/24/21 18:03 107 H 102/55 L 02/24/21 17:59 112 H 97 02/24/21 17:54 113 H 96 02/24/21 17:49 112 H 98 02/24/21 17:48 122 H 107/55 L 02/24/21 17:44 119 H 97 02/24/21 17:39 122 H 97 02/24/21 17:34 113 H 100 02/24/21 17:30 18 02/24/21 17:29 121 H 100 02/24/21 17:24 114 H 100 02/24/21 17:19 115 H 100 02/24/21 17:18 115 H 108/57 L 02/24/21 17:14 123 H 100 02/24/21 17:09 123 H 100 02/24/21 17:04 123 H 117/57 L 100 02/24/21 17:00 18 02/24/21 16:59 124 H 100 02/24/21 16:54 122 H 100 02/24/21 16:49 119 H 105/58 L 100 02/24/21 16:44 119 H 100 02/24/21 16:39 121 H 100 02/24/21 16:34 110 H 100/57 L 100 02/24/21 16:29 107 H 100 02/24/21 16:24 96 H 100 02/24/21 16:19 109 H 114/73 100 02/24/21 16:14 108 H 100 02/24/21 16:09 114 H 100 02/24/21 16:04 117 H 100 02/24/21 16:00 20 02/24/21 15:59 104 H 100 02/24/21 15:54 108 H 100 02/24/21 15:49 105 H 100 02/24/21 15:48 110 H 122/77 02/24/21 15:44 111 H 100 02/24/21 15:39 105 H 100 02/24/21 15:34 121 H 111/71 100 02/24/21 15:29 116 H 100 02/24/21 15:24 121 H 100 02/24/21 15:19 113 H 114/66 100 02/24/21 15:14 129 H 100 02/24/21 15:09 126 H 100 02/24/21 15:04 144 H 100 02/24/21 15:03 126 H 110/70 02/24/21 14:59 124 H 100 02/24/21 14:54 119 H 100 02/24/21 14:49 123 H 100 02/24/21 14:44 106 H 100 02/24/21 14:40 139 H 112/55 L 02/24/21 14:39 110 H 99 02/24/21 14:37 92 H 86 L 02/24/21 14:34 118 H 97 02/24/21 14:17 98.6 F 20 02/24/21 14:13 123 H 109/60 Coding Level of Care Code Admit/DC Same Day >8hr Level 3 Diagnoses Dichorionic diamniotic twin , antepartum O30.049 33 weeks gestation of Z3A.33 labor O60.00
[2021-02-24] MEDS ORDERED: MAGNESIUM SULFATE / WTR 40 GM/1,000 ML BAG IV SCH (21:15)
[2021-02-24] MEDS ORDERED: PENICILLIN G POTASSIUM 6 MU in DEXTROSE 5% 250 ML IV STA (21:22)
[2021-02-24] MEDS ORDERED: CALCIUM GLUCONATE 1000 MG/60 ML NSS IV ONE (21:42)
[2021-02-26 18:02] LABS: Chlamydia Trach RNA NOT DETECTED (NOT DETECTED); GC (Neis gonorrhoeae) RNA NOT DETECTED (NOT DETECTED)
--- NOTE | 2021-02-28 15:12 | Discharge Summary ---
Date of Service Day of admission/observation: February 24, 2021 Day of discharge/transfer: February 24, 2021 Admission HPI Per Admitting Provider Daysi Ornelas is a 30 y/o female currently at 33 +2 WGA with an YESENIA 04/12/21 as determined by LMP who is here for evaluation of contractions. This is a Di-Di . Patient states that around 11 AM today, she developed back pain and lost mucus plug. She called OB and was going to the office for evaluation when she began to experience contractions. Contractions have been constant, occurring every 2 minutes and lasting for approximately 40 seconds. She does report some nausea today. + contractions; + movement; - fluid loss; - bloody show Had regular appointments with OB. Blood type: B+ Antibody screen: negative Labs 09/02/20 Rubella: immune VDRL/RPR: NR Gonorrhea: neg Chlamydia: neg HIV: neg HbSAg: neg GBS: unknown Other screens: cff-DNA: low risk, di-di twins 09/30/20 Discharge Data Consultations 02/24/21 14:40 Consult Anesthesiology Stat Hospital Course (1) 33 weeks gestation of : (2) labor: (3) Dichorionic diamniotic twin , antepartum: (4) Previous delivery affecting , antepartum: On patient's initial presentation evaluation did not show rupture or labor but with supine positioning patient had vagal episode resulting in 10min bradycardia of baby B, that returned to baseline with position change, iv fluids and maternal O2. With patient positioning always in lateral, no further bradycardic episodes noted. After approximately 3-4 hours of observation with evidence of contractions, there was still no cervical change but patient continued to complain of pain with contractions. She was offered morphine rest and accepted such. She slept well and presumably contractions diminished. However, once she woke up she complained of stronger contractions and some cervical change was noted and due to gestational age of twins, and stability of FHTs now over several hours, recommended to couple that we transfer them to tertiary care facility and they agreed. Arrangements were made for transfer to [facility] after I spoke to [facility] cobol application developer. Patient left by ambulance transfer. She had already had martins catheter in place and magnesium tocolysis was initiated to aid in transfer. Earlier that day she had received dose of celestone and had specimens taken for CT/GC and gbs. She was given pencillin dose prior to transfer with diagnosis of labor at 33wks with twins. Coding Level of Care Code None Diagnoses 33 weeks gestation of Z3A.33 labor O60.00 Dichorionic diamniotic twin , antepartum O30.049 Previous delivery affecting , antepartum O34.219
== END 2021-02-24 22:40 | disposition short-term general hospital (02) | DRG 833 ==
LOC: OPB 13:58 → 4S1 14:00 → OBSVTOIN 14:40 → 4S1 14:40 → INTOOBSV 14:40